=== PATIENT | female | born 1965 | race African-American/Black ===

== ENCOUNTER 2024-10-01 18:01 | Inpatient (IN) | payer OTHER ==
[2024-10-01 18:53] VITALS: BMI 28.1
[2024-10-01] MEDS ORDERED: BENZONATATE 200 MG CAPSULE PO PRN (19:39)
[2024-10-01] MEDS ORDERED: NALOXONE (NARCAN) HCL 4 MG/0.1 ML SPRAY NS PRN (19:39)
[2024-10-01] MEDS ORDERED: IBUPROFEN 400 MG TABLET (FP) PO PRN (19:39)
[2024-10-01] MEDS ORDERED: NICOTINE POLACRILEX 2 MG LOZENGE BC PRN (19:39)
[2024-10-01] MEDS ORDERED: IBUPROFEN 600 MG TABLET (FP) PO PRN (19:39)
[2024-10-01] MEDS ORDERED: MAGNESIUM HYDROX 2400MG/30ML ORAL SUSPENSION 30 ML CUP PO PRN (19:39)
[2024-10-01] MEDS ORDERED: NICOTINE POLACRILEX 2 MG GUM BUC PRN (19:39)
[2024-10-01] MEDS ORDERED: POLYETHYLENE GLYCOL (HEALTHYLAX) 3350 17 GM PACKET PO PRN (19:39)
[2024-10-01] MEDS ORDERED: MELATONIN 5 MG TABLETS ONE (21:41)
[2024-10-01] MEDS: THIAMINE 100 MG TABLET PO SCH (21:44)
[2024-10-01] MEDS: MELATONIN 5 MG TABLETS PO SCH (21:45)
[2024-10-02] MEDS: TUBERCULIN PPD 5 TU/0.1ML SYRINGE (IN PATIENT USE ONLY) ID ONE (00:40)
[2024-10-02] MEDS: hydrOXYzine PAMOATE 25 MG CAPSULE (FP) PO PRN (03:35)
[2024-10-02] MEDS: PRENATAL VITAMINS W/ FOLIC ACID TABLET (FP) PO SCH (09:28)
[2024-10-02] MEDS: BICTEGRAV/EMTRICIT/TENOFOV (BIKTARVY) 50-200-25 MG TABLET PO SCH (09:28)
[2024-10-02] MEDS: APIXABAN 5 MG TABLET PO SCH (09:28)
[2024-10-02 11:35] LABS: CHLORIDE 111 mmol/L (98-107); POTASSIUM 3.7 mmol/L (3.5-5.1); SODIUM 140 mmol/L (136-145)
[2024-10-02 11:37] LABS: HEMATOCRIT 24.2 % (32.4-45.2); MCHC 28.9 g/dl (32.0-36.0); MEAN CELL VOLUME 58.9 fl (80-96); MEAN PLT VOLUME 8.2 fl (7.5-11.1); PLATELET COUNT 202 10^3/uL (134-434); RDW 20.6 % (11.6-15.6); WHITE BLOOD COUNT 4.8 K/mm3 (4.0-10.0)
[2024-10-02 11:40] LABS: ALBUMIN 2.8 g/dl (3.4-5.0); ANION GAP 5 mmol/L (4-13); BLOOD UREA NITROGEN 19.6 mg/dL (7-18); CALCIUM 8.4 mg/dL (8.5-10.1); CO2 25 mmol/L (21-32); GLUCOSE,RANDOM 95 mg/dL (74-106)
[2024-10-02 11:43] LABS: CREATININE 0.6 mg/dL (0.55-1.3); SGOT/AST 25 U/L (15-37); SGPT/ALT 24 U/L (13-61)
[2024-10-02 11:45] LABS: BILIRUBIN,TOTAL 0.2 mg/dL (0.2-1); TOT PROT 6.5 g/dl (6.4-8.2)
[2024-10-02 11:46] LABS: ALK PHOS 77 U/L (45-117)
[2024-10-02 17:29] LABS: URINE APPEARANCE CLEAR; URINE BILIRUBIN NEGATIVE (NEGATIVE); URINE COLOR YELLOW; URINE GLUCOSE (UA) NEGATIVE (NEGATIVE); URINE KETONE NEGATIVE (NEGATIVE); URINE LEUK ESTERASE NEGATIVE (NEGATIVE); URINE NITRITE NEGATIVE (NEGATIVE); URINE PROTEIN NEGATIVE (NEGATIVE); URINE UROBILINOGEN 0.2 mg/dL (0.2-1.0)
[2024-10-03] MEDS: ACETAMINOPHEN 325 MG TABLET (FP) PO PRN (09:51)
[2024-10-03] MEDS: METHOCARBAMOL 500 MG TABLET PO PRN (15:08)
[2024-10-03] MEDS: ALBUTEROL SO4 HFA INHALER IH PRN (22:01)
[2024-10-03] MEDS: guaiFENesin 600 MG TABLET.ER (FP) PO PRN (22:03)
[2024-10-03] MEDS: MAG HYDROX/AL HYDROX/SIMETH 30 ML UNIT-DOSE CUP PO PRN (22:03)
[2024-10-06] MEDS ORDERED: PATIENT'S OWN MEDICATION (NON-FORMULARY) (Ferrous Sulfate [Ferrous Sulfate] 325 MG Tablet) PO SCH (19:45)
[2024-10-06] MEDS: FERROUS SO4 325 MG TABLET (FP) PO SCH (21:19)
[2024-10-06] MEDS: DOCUSATE SODIUM 100 MG CAPSULE (FP) PO SCH (21:19)
[2024-10-06] MEDS: ASCORBIC ACID 250 MG TABLET (FP) PO SCH (21:20)
[2024-10-07] MEDS: BENZOCAINE/MENTHOL (CHLORASEPTIC ) LOZENGE MM PRN (05:32)
[2024-10-07] MEDS: PANTOPRAZOLE 20 MG TABLET PO SCH (09:48)
[2024-10-08] MEDS: P-EPHED 60MG/TRIPROLIDI 2.5MG TABLET PO PRN (18:36)
[2024-10-08] MEDS: SIMETHICONE 80 MG TAB.CHEW (FP) PO PRN (18:36)
[2024-10-09] MEDS: BICTEGRAV/EMTRICIT/TENOFOV (BIKTARVY) 50-200-25 MG TABLET PO SCH (06:16)
[2024-10-09] MEDS ORDERED: IBUPROFEN 600 MG TABLET (FP) PO PRN (12:01)
[2024-10-09] MEDS ORDERED: IBUPROFEN 400 MG TABLET (FP) PO PRN (12:01)
[2024-10-09] MEDS: SULFAMETHOXAZOLE/TRIMETHOPRIM 800MG/160MG D.S. TABLET PO SCH (12:18)
[2024-10-09] MEDS: BACLOFEN 10 MG TABLET (FP) PO SCH (12:18)
[2024-10-09] MEDS: guaiFENesin 600 MG TABLET.ER (FP) PO PRN (12:18)
[2024-10-10 10:38] LABS: INR 1.13 (0.83-1.09); PROTHROMBIN TIME (PATIENT) 12.7 SEC (9.7-13.0)
[2024-10-10] MEDS: BENZONATATE 200 MG CAPSULE PO PRN (23:02)
[2024-10-12] MEDS ORDERED: DICYCLOMINE HCL 10 MG CAPSULE PO PRN (09:14)
[2024-10-12] MEDS ORDERED: OXYMETAZOLINE 0.05% NASAL SOLUTION 15 ML BOTTLE NS PRN (09:21)
[2024-10-12] MEDS: AZITHROMYCIN 250 MG TABLET PO ONE (12:07)
[2024-10-12] MEDS: CARBAMIDE PEROXIDE 6.5% OTIC 15 ML BOTTLE AU SCH (12:07)
[2024-10-12] MEDS: guaiFENesin 600 MG TABLET.ER (FP) PO PRN (19:29)
[2024-10-13] MEDS ORDERED: AZITHROMYCIN 500 MG TABLET PO SCH (10:00)
[2024-10-13] MEDS: AZITHROMYCIN 250 MG TABLET PO SCH (10:06)
[2024-10-13] MEDS: BENZONATATE 200 MG CAPSULE PO PRN (10:08)
[2024-10-13] MEDS: predniSONE 20 MG TABLET (UD) PO SCH (18:05)
[2024-10-15] MEDS: BISMUTH SUBSALICYLATE 262 MG/15 ML BTL PO PRN (16:43)
[2024-10-16] MEDS: LOPERAMIDE HCL 2 MG CAPSULE PO PRN (04:45)
[2024-10-16 06:58] VITALS: BP 111/68; PULSE 98; RESP 16; TEMP 98
[2024-10-16] MEDS: clonazePAM 0.5 MG ODT TABLETS SL ONE (11:08)
== END 2024-10-16 10:45 | disposition home or self-care (01) | DRG 772 ==
LOC: YASAS 18:01 → Y3NR 21:48 → Y5N 10-04 12:36
PROVIDERS: ADMIT Allergy & Immunology; ATTEND Psychiatry & Neurology Pain Medicine
PROC: HZ42ZZZ Group Counseling for Substance Abuse Treatment, Cognitive-Behavioral (ICD-10-PCS; principal; 2024-10-01)
DX: F10.20 Alcohol dependence, uncomplicated (principal); F14.20 Cocaine dependence, uncomplicated; F17.210 Nicotine dependence, cigarettes, uncomplicated; F32.A Depression, unspecified; D50.9 Iron deficiency anemia, unspecified; R05.9 Cough, unspecified; Z86.718 Personal history of other venous thrombosis and embolism; Z79.01 Long term (current) use of anticoagulants
CPT/HCPCS: 0241U-QW; 36415; 71046-TC-FY; 80053; 80305; 80307; 81003; 82140; 82652; 83735; 85027; 85610; 86780; 87811; 93005; 93010; J0475